=== PATIENT | female | born 1965 | race Caucasian/White ===

== ENCOUNTER → 2018-09-13 | Outpatient (CLI) | payer OTHER ==
[~2018-09-13] MED LIST: DICL50TA3 PO
--- NOTE | 2018-09-13 10:54 | Diagnostic Imaging Report ---
PROCEDURE: US Abdomen, limited. TECHNIQUE: Multiple realtime grayscale images were obtained over the abdomen in various projections. INDICATION: Palpable abnormality right upper quadrant. Limited real-time grayscale images were obtained of the right upper quadrant. There is no evidence of discrete solid or cystic mass. IMPRESSION: Negative ultrasound of the right upper quadrant. Dictated by: Dictated on workstation # [id number]
== END ==
LOC: RAD 08:59
PROVIDERS: ATTEND Surgery
DX: R19.01 Right upper quadrant abdominal swelling, mass and lump (principal)
CPT/HCPCS: 76705

== ENCOUNTER 2018-09-15 14:49 | Outpatient (CLI) | payer OTHER ==
[~2018-09-15] VITALS: Ht 157.5 cm; Wt 105.2 kg
[2018-09-16] MEDS ORDERED: ACHD5005 PO (13:14)
== END 2018-09-15 15:12 | disposition home or self-care (01) ==
LOC: PREOP 14:49
PROVIDERS: ATTEND Surgery
DX: Z01.818 Encounter for other preprocedural examination (principal)

== ENCOUNTER 2018-09-16 10:18 | Day surgery (SDC) | payer OTHER ==
[~2018-09-16] VITALS: Ht 157.5 cm; Wt 117.5 kg
[2018-09-16 10:40] VITALS: BP 137/67
[2018-09-16] MEDS ORDERED: ceFAZolin 2 GM IV Premixed 50 ML IV ONE (10:45)
[2018-09-16] MEDS ORDERED: BUPIVACAINE 0.5% 30 ML (SENSORCAINE) VIAL ONE (12:07)
[2018-09-16] MEDS ORDERED: LIDOCAINE 1% INJ 20 ML 20 ML VIAL ONE (12:07)
[2018-09-16] MEDS ORDERED: MIDAZOLAM 2 MG/2 ML (VERSED) VIAL ONE (12:16)
[2018-09-16] MEDS ORDERED: fentaNYL INJECTION 100 MCG/2 ML AMP ONE (12:16)
[2018-09-16] MEDS ORDERED: ONDANSETRON 4 MG/2 ML (SDV) Z0FRAN ONE (12:24)
[2018-09-16] MEDS ORDERED: SEVOFLURANE (ULTANE) 15 ML INHAL SOLN ONE ×3 (12:24→13:24)
[2018-09-16] MEDS ORDERED: LIDOCAINE PF 2% 5 ML (XYLOCAINE) VIAL ONE (12:24)
[2018-09-16] MEDS ORDERED: DEXAMETHASONE 10 MG/ML (DECADRON) 1 ML VIAL ONE (12:24)
[2018-09-16] MEDS ORDERED: proPOfol 200 MG/20 ML (DIPRIVAN) VIAL IV ONE (12:24)
[2018-09-16] MEDS ORDERED: LACTATED RINGERS 1,000 ML IV PRN (12:25)
--- NOTE | 2018-09-16 12:34 | Progress Note-Pre Operative ---
Pre-Operative Progress Note H&P Reviewed The H&P was reviewed, patient examined and no changes noted. Date Seen by Provider: Sep 16, 2018 Time Seen by Provider: 12:34 Date H&P Reviewed: Sep 16, 2018 Time H&P Reviewed: 12:34 Pre-Operative Diagnosis: right upper quadrant mass RUSLAN ZHENG DO Sep 16, 2018 12:34
--- NOTE | 2018-09-16 13:13 | Progress Note-Post Operative ---
Post-Operative Progess Note Surgeon (s)/Barista (s) Surgeon RUSLAN ZHENG DO Barista: na Pre-Operative Diagnosis right upper quadrant mass Post-Operative Diagnosis same Procedure & Operative Findings Date of Procedure 09/16/18 Procedure Performed/Findings excision of ruq subcutaneous mass 6.4x6cm Anesthesia Type gen Estimated Blood Loss Estimated blood loss (mL): min Specimens/Packing Specimens Removed ruq abdominal mass RUSLAN ZHENG DO Sep 16, 2018 13:13
[2018-09-16] MEDS ORDERED: ACHD5005 PO (13:14)
--- NOTE | 2018-09-16 13:15 | Discharge Inst-Simple/Standard ---
Discharge Inst-Standard Discharge Medications New, Converted or Re-Newed RX: RX on Chart Patient Instructions/Follow Up Plan of Care/Instructions/FU: 2 weeks Calvo Activity as Tolerated: No Discharge Diet: Regular Diet Other Inst to Patient Follow up Appt: Make appointment for 2 week. Instructions: No lifting greater than 10 pounds. No strenuous activity. May shower in 24 hours, no tub bath or soaking. Use incentive spirometer at home as directed. No Smoking Skin/Wound Care: You have special glue over incision it will fall off on is own. Symptoms to Report: Appetite Changes, Extremity Discoloration, Numbness/Tingling, Swelling Increased , Bleeding Excessive, Eyesight Changes, Pain Increased, Urine Color Change, Constipation(Persistent), Fever over 101 degree F, Pain/Pressure in chest, Urinating Difficulty, Cough Up/Vomit Blood, Heart Beat Irreg/Pounding, Pain/ Pressure in jaw, Vaginal Bleeding Increase, Cramps in feet or legs, Lightheadedness, Pain/Pressure in shoulder, Diarrhea(Persistent), Memory Changes Suddenly, Questions/Concerns, Weight gain consecutive days, Dizziness/ Fainting, Nausea/Vomiting, Shortness of Breath, Weight gain over 2 pounds If questions or concerns contact your physician Or seek help at emergency department. RUSLAN CALVO DO Sep 16, 2018 13:15
[2018-09-16] MEDS ORDERED: ONDANSETRON 4 MG/2 ML (SDV) Z0FRAN IVP PRN (13:45)
[2018-09-16] MEDS ORDERED: morphine INJ 10 MG/ML 1ML (SYR OR VIAL) IVP ONE (13:45)
[2018-09-16] MEDS ORDERED: morphine INJ 10 MG/ML 1ML (SYR OR VIAL) ONE (13:50)
--- NOTE | 2018-09-16 13:54 | Anesthesia-General Post-Op ---
General Patient Condition Mental Status/LOC: Same as Preop Cardiovascular: Satisfactory Nausea/Vomiting: Absent Respiratory: Satisfactory Pain: Controlled Complications: Absent Post Op Complications Complications None Follow Up Care/Instructions Patient Instructions None needed. Anesthesia/Patient Condition Patient Condition Patient is doing well, no complaints, stable vital signs, no apparent adverse anesthesia problems. No complications reported per nursing. FAYE MCALLISTER CRNA Sep 16, 2018 13:54
[2018-09-16 14:35] VITALS: BP 142/66
[2018-09-16 15:05] VITALS: BP 121/55
[2018-09-16] MEDS ORDERED: HYDROcodone/APAP 5 MG/325 MG (LORTAB) TAB PO ONE (15:15)
[2018-09-16] MEDS ORDERED: HYDROcodone/APAP 5 MG/325 MG (LORTAB) TAB ONE (15:24)
[2018-09-16 15:35] VITALS: BP 117/60
[2018-09-16 15:55] VITALS: BP 117/60
--- NOTE | 2018-09-16 20:35 | OPERATIVE REPORT ---
DATE OF SERVICE: 09/16/2018 PREOPERATIVE DIAGNOSIS: Right upper quadrant abdominal mass. POSTOPERATIVE DIAGNOSIS: Right upper quadrant abdominal mass. PROCEDURE: Excision of right upper quadrant abdominal mass subcutaneous layer 6.4 x 6 cm. SURGEON: Ruslan Calvo DO. ANESTHESIA: General. ESTIMATED BLOOD LOSS: Minimal. COMPLICATIONS: None. INDICATIONS: The patient is a 52-year-old female with right upper quadrant abdominal mass continued to increase in size. She understands risks and benefits of procedure and wished to proceed with procedure. Consent was signed in the chart. DESCRIPTION OF PROCEDURE: The patient was taken to the operating suite. She was prepped and draped in sterile fashion. Surgical pause was performed. Local anesthetic was infiltrated in the area and 15 blade scalpel was used to make a skin incision down to the subcutaneous tissues. In the deeper subcutaneous tissues, the mass was encountered. It is fatty in nature. This was then dissected around and it was delivered through the incision and cautery was used to dissect it around. The base of it was attached to the lower muscles the lower ribs. Hemostasis was achieved. Mass was removed in its entirety, measuring 6.4 x 6 cm. The wound was then irrigated with copious amounts of irrigation. The deep subcutaneous tissues were then reapproximated using 3-0 Vicryl. The more shallow subcutaneous tissues were then reapproximated with 3-0 Vicryl. Skin was then closed in a running fashion using 4-0 Vicryl in a running subcuticular fashion. The abdomen was then washed and dried. Skin Affix was placed over the incision. The patient tolerated the procedure well without any complication. She was taken to recovery room in stable condition. Job ID: [id number] DocumentID: [id number] Dictated Date: 09/16/2018 13:18:52 Pump Attendant Date: 09/16/2018 20:35:03 Dictated By: RUSLAN CALVO DO
== END 2018-09-16 15:55 | disposition home or self-care (01) ==
LOC: SDC 10:18
PROVIDERS: ATTEND Surgery
DX: D17.1 Benign lipomatous neoplasm of skin and subcutaneous tissue of trunk (principal); Z87.891 Personal history of nicotine dependence
CPT/HCPCS: 87081; 88304

== ENCOUNTER 2018-10-18 06:33 | Outpatient (CLI) | payer OTHER ==
[~2018-10-18] VITALS: Ht 157.5 cm; Wt 117.5 kg
[~2018-10-18 06:33] MED LIST changes: +ACHD5005 PO
== END 2018-10-18 13:22 | disposition home or self-care (01) ==
LOC: PREOP 06:33
PROVIDERS: ATTEND Surgery
DX: Z01.818 Encounter for other preprocedural examination (principal)

== ENCOUNTER → 2019-08-03 | Outpatient (CLI) | payer OTHER ==
--- NOTE | 2019-08-03 17:21 | Diagnostic Imaging Report ---
INDICATION: Routine screening. COMPARISON: Comparison is made with prior mammogram from 04/19/2013. TECHNIQUE: 2-D and 3-D bilateral screening mammography was performed. The current study was also evaluated with a Computer Aided Detection (CAD) system. 3-D tomosynthesis was also performed and reviewed. FINDINGS: Scattered fibroglandular densities are identified bilaterally. There are some calcifications in the upper left breast, which appear to have been present on exam from 2013. These are likely benign. No mass or malignant-appearing microcalcifications are seen. Axillae are unremarkable. IMPRESSION: No mammographic features suspicious for malignancy are identified. ACR BI-RADS Category 2: Benign findings. Result letter will be mailed to the patient. Note: At least 10% of breast cancer is not imaged by mammography. Dictated by: Dictated on workstation # [id number]
== END ==
LOC: RAD 14:58
PROVIDERS: ATTEND Nurse Practitioner Primary Care
DX: Z12.31 Encounter for screening mammogram for malignant neoplasm of breast (principal)
CPT/HCPCS: 77067